=== PATIENT | female | born 1990 | race African-American/Black ===

== ENCOUNTER 2016-08-22 13:02 | Emergency (ER) | payer OTHER ==
[~2016-08-22] VITALS: Ht 157.5 cm; Wt 70.0 kg
[~2016-08-22 13:02] MED LIST: DICL-86 PO; Z.0.NO CURRENT MEDS
[2016-08-22 13:03] VITALS: BP 149/94; PULSE 92; RESP 12; TEMP 98.3; O2SAT 100
--- NOTE | 2016-08-22 13:47 | PD ---
HPI Chief Complaint: Injury Time Seen by Provider: 13:47 Travel History International Travel<30 days: No Contact w/Intl Traveler<30days: No Traveled to known affect area: No History of Present Illness HPI 25-year-old female presents to the emergency Department with complaint of right thumb pain after trying to open a [employer] bag and her right thumb hyperextended backwards. She is an employee here at [employer]. Denies paresthesias, loss of sensation to the affected finger. Reports decreased range of motion secondary to pain. Has not taken any medications or tried any treatments to alleviate her symptoms. Denies fever, chills, nausea, vomiting. Denies significant past medical history. No known allergies. No other modifying factors or associated signs and symptoms. [facility]LY [facility] Past Medical History Medical History: Denies Significant Hx ?: Not Past Surgical History Surgical History: No Previous Surgery Social History Alcohol Use: No Tobacco Use: No Substance Use: No Allergies-Medications (Allergen,Severity, Reaction): Coded Allergies: No Known Allergies (Verified , 08/22/16) Reported Meds & Prescriptions Reported Meds & Active Scripts Active No Active Prescriptions or Reported Medications Review of Systems Except as stated in HPI: all other systems reviewed are Neg Physical Exam Narrative GENERAL: Well-nourished, well-developed female patient, in no acute distress SKIN: Warm and dry. HEAD: Atraumatic. Normocephalic. EYES: Pupils equal and round. No scleral icterus. No injection or drainage. ENT: Mucosa pink and moist. Airway patent. NECK: Trachea midline. CARDIOVASCULAR: Regular rate. RESPIRATORY: No accessory muscle use. GASTROINTESTINAL: Flat. MUSCULOSKELETAL: Right thumb without erythema, edema, ecchymosis; with tenderness on palpation to the thenar eminence area; no obvious deformity; sensory intact; with full range of motion at all finger joints; negative for snuffbox tenderness. Right upper extremity supple and nontender to 2+ pedal pulses and sensory intact and without erythema or edema. No obvious deformities. No clubbing. No cyanosis. NEUROLOGICAL: Awake and alert. Oriented 3. No obvious cranial nerve deficits. Motor grossly within normal limits. Normal speech. PSYCHIATRIC: Appropriate mood and affect; insight and judgment normal. Data Data Last Documented VS Vital Signs Date Time Temp Pulse Resp B/P Pulse Ox O2 Delivery O2 Flow Rate FiO2 08/22/16 13:03 98.3 92 12 149/94 100 Room Air Orders Ibuprofen (Motrin) (08/22/16 14:00) Hand, Complete ([id number]) (08/22/16 13:47) Ice/Cold Pack (08/22/16 13:47) MDM Medical Decision Making Medical Screen Exam Complete: Yes Emergency Medical Condition: Yes Medical Record Reviewed: Yes Differential Diagnosis Dislocation, fracture, sprain Narrative Course 25-year-old female, employee at [employer], with right thumb injury. No obvious deformity. Tenderness on palpation to the thenar eminence area. Ibuprofen administered in the ER. Ice pack applied. Right hand x-ray ordered. 1610: Right hand x-ray concludes Unremarkable examination of the right hand. Rajesh wrap provided for support. Ibuprofen prescribed for home. Patient is medically cleared and stable for discharge. Discussed reasons to return to the emergency department. Instructed patient to follow up with primary care provider. Patient agrees with treatment plan. The patients vital signs are stable and the patient is stable for outpatient follow-up and treatment. Patient discharged home, stable and in no acute distress. Diagnosis Primary Impression: Sprain of right thumb Qualified Code: S63.601A - Sprain of right thumb, unspecified site of finger, initial encounter Referrals: Primary Care Physician Patient Instructions: Finger Sprain (ED), General Instructions Additional Instructions: Tylenol or ibuprofen as directed and as needed to reduce pain Rest, ice, compress, and elevate extremity to decrease pain and inflammation Rajesh wrap for support Avoid aggravating activity; increase activity as tolerated Follow-up with primary care provider Return to the emergency department immediately with worsening symptoms Med/Other Pt SpecificInfo: Prescription(s) given Scripts Ibuprofen 800 Mg [id number] Mg PO Q6HR PRN (PAIN) #30 TAB Ref 0 Prov:Connie Mcmahan 08/22/16 Disposition: 01 DISCHARGE HOME Condition: Stable Connie Mcmahan Aug 22, 2016 13:47
[2016-08-22] MEDS ORDERED: IBUPROFEN 800 MG TAB PO ONE (14:00)
--- NOTE | 2016-08-22 15:59 | RADRPT ---
EXAM DATE/TIME: 08/22/2016 14:12 [facility] COMPARISON: No previous studies available for comparison. INDICATIONS : Right hand pain, hypertended thumb. MEDICAL HISTORY : None. SURGICAL HISTORY : None. ENCOUNTER: Initial ACUITY: 1 day PAIN SCORE: 10/10 LOCATION: Right hand, first digit. FINDINGS: Three view examination of the right hand demonstrates no soft tissue swelling, dislocation, or fractu re. The carpal bones appear intact. The interphalangeal and metacarpophalangeal joints are intact. Bony mineralization is normal. CONCLUSION: Unremarkable examination of the right hand. Don Ellis MD on August 22, 2016 at 15:54 Board Certified Radiologist. This report was verified electronically.
[2016-08-22] MEDS ORDERED: IBUP800T23 PO (16:11)
== END 2016-08-22 16:27 | disposition home or self-care (01) ==
LOC: NEPB 13:02
DX: S63.601A Unspecified sprain of right thumb, initial encounter (principal); X58.XXXA Exposure to other specified factors, initial encounter; Y93.F9 Activity, other caregiving; Y92.230 Patient room in hospital as the place of occurrence of the external cause; Y99.0 Civilian activity done for income or pay
CPT/HCPCS: 73130; 99283